=== PATIENT | female | born 1995 | race Caucasian/White ===

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

== ENCOUNTER 2018-01-28 13:32 | Emergency (ER) | END 2018-01-28 18:07 | disposition home or self-care (01) ==

== ENCOUNTER 2018-11-07 18:47 | Emergency (ER) | payer OTHER ==
[~2018-11-07] VITALS: Ht 162.6 cm; Wt 62.9 kg
[~2018-11-07 18:47] MED LIST changes: +FIORICET PO; +FLUC150T PO
[2018-11-07 18:51] VITALS: Ht 162.6 cm; Wt 62.9 kg
[2018-11-07] MEDS ORDERED: ACETAMINOPHEN 325 MG TAB PO STA (21:24)
[2018-11-07] MEDS ORDERED: SOD CHLORIDE 0.9% 1,000 ML IV STA (21:24)
[2018-11-07] MEDS ORDERED: DIPHENHYDRAMINE 50 MG INJ IV ONE (21:30)
[2018-11-07] MEDS ORDERED: METOCLOPRAMIDE 10 MG INJ IV ONE (21:30)
[2018-11-07] MEDS ORDERED: METO10TA92 PO (23:32)
[2018-11-07] MEDS ORDERED: CEPH-443 PO (23:35)
--- NOTE | 2018-11-07 23:44 | ERD ---
ER Documentation Chief Complaint Chief Complaint abd pain started today with nausea/vomiting; cant keep food down HPI 23-year-old female patient with no significant past medical history, is currently is a presents the ED complaining of abdominal pain, nausea, vomiting. Patient reports that she had some vaginal spotting, and has had about 10 episodes of nonbilious nonbloody vomiting. Denies any chest pain, shortness of breath, diarrhea, constipation. Reports her last menstruation is on October 02, 2018. ROS All systems reviewed and are negative except as per history of present illness. Medications Home Meds Active Scripts Cephalexin* (Keflex*) 500 Mg Capsule, 500 MG PO QID for 7 Days, CAP Prov:JOSEP THOMAS PA-C 11/07/18 Metoclopramide* (Reglan*) 10 Mg Tablet, 10 MG PO Q6 PRN for NAUSEA AND/OR VOMITING, #10 TAB Prov:JOSEP THOMAS PA-C 11/07/18 Fluconazole* (Diflucan*) 150 Mg Tablet, 150 MG PO ONCE, #1 TAB Prov:LAUREN ORNELAS PA-C 01/28/18 Cephalexin* (Keflex*) 500 Mg Capsule, 500 MG PO BID for 7 Days, #14 CAP Prov:LAUREN ORNELAS PA-C 01/28/18 Acetamin/Butalbital/Caffeine* (Fioricet*) [id number] Tab, 1 TAB PO Q6H PRN for PAIN, #30 TAB Prov:JOSEP THOMAS PA-C 12/07/16 Norgestimate-Ethinyl Estradiol (Ortho Tri-Cyclen 28 Tablet) 1 Each Tablet, 1 EACH PO DAILY for 30 Days, TAB Prov:PENELOPE SMART PA-C 07/03/16 Medroxyprogesterone Acetate* (Provera*) 5 Mg Tablet, 5 MG PO DAILY, #10 TAB Prov:STEVEN GALLAGHER DO 10/14/15 Sulfamethoxazole-Trimethoprim* (Bactrim* DS) 800-160 Mg Tab, 1 TAB PO BID for 7 Days, TAB Prov:SOHAM SUNSHINE 07/04/15 Acetaminophen* (Tylophen*) 500 Mg Capsule, 1 CAP PO Q6H PRN for PAIN AND OR ELEVATED TEMP, #20 CAP Prov:SOHAM SUNSHINE 07/04/15 Cephalexin* (Keflex*) 500 Mg Capsule, 500 MG PO QID for 7 Days, CAP Prov:SOHAM SUNSHINE 07/04/15 Allergies Allergies: Coded Allergies: No Known Allergy (Unverified , 01/28/18) PMhx/Soc Medical and Surgical Hx: pt denies Medical Hx, pt denies Surgical Hx History of Surgery: No Hx Neurological Disorder: No Hx Respiratory Disorders: No Hx Cardiac Disorders: No Hx Psychiatric Problems: No Hx Miscellaneous Medical Probl: No Hx Alcohol Use: No Hx Substance Use: No Hx Tobacco Use: Yes (quit yesterday) Smoking Status: Former smoker FmHx Family History: No diabetes, No coronary disease Physical Exam Vitals Vital Signs Date Temp Pulse Resp B/P (MAP) Pulse Ox O2 O2 Flow FiO2 Time Delivery Rate 11/07/18 97.1 82 20 122/56 100 18:51 (78) Physical Exam Const: Lsa-arc-nvykiihan, well-nourished. In no acute distress. Head: Atraumatic, normocephalic Eyes: Normal Conjunctiva without injection. No purulent discharge. ENT: Normal external ear, nose. Moist oropharynx without tonsillar exudates. Non-erythematous pharynx. Uvula midline. No drooling. No trismus. Neck: No cervical midline tenderness. Full range of motion. No meningismus. No cervical lymphadenopathy. No JVD. Resp: Clear to auscultation bilaterally. No wheezing, rhonchi, rales, or crackles. No accessory muscle use. No retractions. Cardio: Regular rate and rhythm. No murmurs, rubs or gallops. Abd: Soft, nontender, non distended. Normal bowel sounds. No palpable masses. No rebound tenderness. No guarding. Negative McBurney's point. Negative psoas sign. Negative obturator sign. Skin: No petechiae or rashes Back: No midline tenderness. No CVA tenderness. Ext: No cyanosis, or edema. Neur: Awake and alert. Normal gait. Normal coordination. Psych: Normal Mood and Affect Result Diagram: 11/07/18214411/07/182144 Results 24 hrs Laboratory Tests Test 11/07/18 21:45 White Blood Count 16.8 10^3/ul Red Blood Count 4.60 10^6/ul Hemoglobin 14.5 g/dl Hematocrit 42.2 % Mean Corpuscular Volume 91.7 fl Mean Corpuscular Hemoglobin 31.5 pg Mean Corpuscular Hemoglobin Concent 34.4 g/dl Red Cell Distribution Width 12.9 % Platelet Count 249 10^3/UL Mean Platelet Volume 12.3 fl Immature Granulocytes % 0.600 % Neutrophils % 83.0 % Lymphocytes % 11.4 % Monocytes % 4.7 % Eosinophils % 0.0 % Basophils % 0.3 % Nucleated Red Blood Cells % 0.0 /100WBC Immature Granulocytes # 0.100 10^3/ul Neutrophils # 14.0 10^3/ul Lymphocytes # 1.9 10^3/ul Monocytes # 0.8 10^3/ul Eosinophils # 0.0 10^3/ul Basophils # 0.1 10^3/ul Nucleated Red Blood Cells # 0.0 10^3/ul Urine Color DIRK Urine Clarity CLOUDY Urine pH 5.0 Urine Specific Keyser 1.028 Urine Ketones 2+ mg/dL Urine Nitrite NEGATIVE mg/dL Urine Bilirubin NEGATIVE mg/dL Urine Urobilinogen NEGATIVE mg/dL Urine Leukocyte Esterase NEGATIVE Sanaz/ul Urine Microscopic RBC 4 /HPF Urine Microscopic WBC 2 /HPF Urine Squamous Epithelial Cells MANY /HPF Urine Bacteria FEW /HPF Urine Mucus MANY /HPF Urine Hemoglobin 3+ mg/dL Urine Glucose NEGATIVE mg/dL Urine Total Protein 2+ mg/dl Sodium Level 141 mmol/L Potassium Level 3.1 mmol/L Chloride Level 105 mmol/L Carbon Dioxide Level 20 mmol/L Anion Gap 16 Blood Urea Nitrogen 6 mg/dl Creatinine 0.53 mg/dl Est Glomerular Filtrat Rate mL/min > 60 mL/min Glucose Level 106 mg/dl Calcium Level 9.7 mg/dl Total Bilirubin 1.9 mg/dl Direct Bilirubin 0.00 mg/dl Indirect Bilirubin 1.9 mg/dl Aspartate Amino Transf (AST/SGOT) 29 IU/L Alanine Aminotransferase (ALT/SGPT) < 6 IU/L Alkaline Phosphatase 71 IU/L Total Protein 9.5 g/dl Albumin 5.2 g/dl Globulin 4.30 g/dl Albumin/Globulin Ratio 1.20 Lipase 57 U/L Beta HCG, Quantitative 20569.0 mIU/ml Current Medications Medications Dose Sig/Christy Start Time Status Last (Trade) Ordered Route PRN Stop Time Admin Dose Reason Admin Sodium 1,000 ml @ Q1H STAT 11/07/18 DC 11/07/18 Chloride 1,000 mls/hr IV 21:24 21:57 11/07/18 22:23 650 mg ONCE STAT 11/07/18 DC 11/07/18 Acetaminophen PO 21:24 22:01 (Tylenol 11/07/18 Tab) 21:26 10 mg ONCE ONCE 11/07/18 DC 11/07/18 Metoclopramid IV 21:30 21:57 e HCl 11/07/18 (Reglan) 21:31 25 mg ONCE ONCE 11/07/18 DC 11/07/18 Diphenhydrami IV 21:30 22:00 ne HCl 11/07/18 (Benadryl) 21:31 Procedures/MDM 23-year-old female patient with no significant past medical history presents to the ED complaining of abdominal pain, vomiting. Patient is afebrile and nontoxic-appearing. An ultrasound, beta-hCG, CBC, type and RH, UA was ordered to evaluate patient. Patient was treated here in the ED with 1 L normal saline, Reglan, 25 mg IV Benadryl treatment of her symptoms. Patient did not vomit here in the ED. CBC: No evidence of severe infection or anemia Urine: No elevation in nitrites, leukocyte esterase, hematuria. No evidence of UTI Rh: O positive No indication for Rhogam at this time. beta Hc PROCEDURE: Abdominal ultrasound, limited. CLINICAL INDICATION: Abdominal pain. TECHNIQUE: Multiple real-time images were acquired of the patient's right upper abdomen utilizing a high resolution transducer. COMPARISON: None FINDINGS: The liver demonstrates normal echogenicity and size measuring 17.0 cm. There is no focal mass or intrahepatic biliary ductal dilatation. The portal vein is patent. The gallbladder is not distended. No gallstones are identified. There is no pericholecystic fluid or gallbladder wall thickening. The common bile duct measures 3.9 mm in maximal dimension. The visualized portions of the pancreas are unremarkable. No free fluid is identified. The right kidney is normal size and echogenicity measuring 10.5 x 4.0 x 4.8 cm. There is no focal renal mass or echogenic calculus identified. There is no obstructive uropathy. IMPRESSION: Unremarkable right upper abdominal ultrasound. PROCEDURE: US OB. CLINICAL INDICATION: Pelvic pain TECHNIQUE: Transabdominal and transvaginal sonographic evaluation of the uterus was performed. COMPARISON: Pelvic sonogram dated 03/22/2015. FINDINGS: Uterus is retroverted. There is a gestational sac in the fundus of uterus containing yolk sac. There is no visible pole. Mean sac diameter measures 19.5 mm. Estimated gestational age based on this examination is 6 weeks and 4 days +/- 4 days. Estimated date of confinement based on this examination is 06/29/2019. Small hypoechoic lesion measuring approximately 13 x 3 x 9 mm, may represent subchorionic hemorrhage. Right ovary measures 2.9 x 1.7 x 2.3 cm. Left ovary measures 2.3 x 1.8 x 2.4 cm. Small follicles are seen in both ovaries. Normal vascular waveforms were sampled from both ovaries. There is trace free pelvic fluid. IMPRESSION: 1. Small intrauterine gestational sac containing yolk sac. No visible pole. Recommend follow-up pelvic sonogram in 7 - 10 days for reevaluation. 2. Probable small subchorionic hemorrhage. 3. Unremarkable ovaries. 4. Trace free pelvic fluid. Patient has a single intrauterine gestational sac. No pole noted, therefore patient was strictly instructed to follow-up with her [employer] for repeat sonogram. Patient was noted to have 2 white blood cells in her urine, patient will be treated for a urinary tract infection to avoid any labor. Pelvic rest was recommended due to the probable small subchorionic hemorrhage noted. Patient's bleeding symptoms have stabilized while in the department. Low suspicion for symptomatic anemia, ectopic , sepsis, PID, appendicitis, ovarian torsion, tubo-ovarian abscess, surgical abdomen, or other emergent conditions. Patient was educated that there is a risk for threatened . Patient to follow up with [employer] in 2 days for further evaluation and treatment. Patient is to return sooner to the ED for any worsening symptoms. Patient's questions were answered. Patient understood and agreed with discharge plan. Departure Diagnosis: Primary Impression: Hyperemesis gravidarum Additional Impression: Vaginal spotting Condition: Stable Patient Instructions: Hyperemesis Gravidarum (Severe Morning Sickness), Urinary Tract Infections in Women, Possible Miscarriage (Threatened ) Referrals: COMMUNITY CLINICS YOU HAVE RECEIVED A MEDICAL SCREENING EXAM AND THE RESULTS INDICATE THAT YOU DO NOT HAVE A CONDITION THAT REQUIRES URGENT TREATMENT IN THE EMERGENCY DEPARTMENT. FURTHER EVALUATION AND TREATMENT OF YOUR CONDITION CAN WAIT UNTIL YOU ARE SEEN IN YOUR DOCTORS OFFICE WITHIN THE NEXT 1-2 DAYS. IT IS YOUR RESPONSIBILITY TO MAKE AN APPOINTMENT FOR FOLOW-UP CARE. IF YOU HAVE A PRIMARY DOCTOR --you should call your primary doctor and schedule an appointment IF YOU DO NOT HAVE A PRIMARY DOCTOR YOU CAN CALL OUR PHYSICIAN REFERRAL HOTLINE AT IF YOU CAN NOT AFFORD TO SEE A PHYSICIAN YOU CAN CHOSE FROM THE FOLLOWING [facility] [address] [facility] [address] [facility] [address] [facility] [address] [facility] [address] [facility] [address] [facility]. [facility] YOU HAVE RECEIVED A MEDICAL SCREENING EXAM AND THE RESULTS INDICATE THAT YOU DO NOT HAVE A CONDITION THAT REQUIRES URGENT TREATMENT IN THE EMERGENCY DEPARTMENT. FURTHER EVALUATION AND TREATMENT OF YOUR CONDITION CAN WAIT UNTIL YOU ARE SEEN IN YOUR DOCTORS OFFICE WITHIN THE NEXT 1-2 DAYS. IT IS YOUR RESPONSIBILITY TO MAKE AN APPOINTMENT FOR FOLOW-UP CARE. IF YOU HAVE A PRIMARY DOCTOR --you should call your primary doctor and schedule and appointment IF YOU DO NOT HAVE A PRIMARY DOCTOR YOU CAN CALL OUR PHYSICIAN REFERRAL HOTLINE AT . IF YOU CAN NOT AFFORD TO SEE A PHYSICIAN YOU CAN CHOSE FROM THE FOLLOWING [facility] INSTITUTIONS: [facility] [address] [place] [address] [facility] [address] [place] [address] [facility] [address] [place] [address] [facility] URGENT CARE/SPECIALTIES Additional Instructions: Call your primary care doctor TOMORROW for an appointment during the next 2-3 days.See the doctor sooner or return here if your condition worsens before your appointment time. JOSEP THOMAS PA-C Nov 07, 2018 23:44
[2018-11-07 23:53] VITALS: BP 117/64; PULSE 68; RESP 16
== END 2018-11-07 23:54 | disposition home or self-care (01) ==
LOC: FTE 18:47
DX: O21.0 Mild hyperemesis gravidarum (principal); O26.851 Spotting complicating pregnancy, first trimester; R10.2 Pelvic and perineal pain; Z3A.01 Less than 8 weeks gestation of pregnancy
CPT/HCPCS: 36415; 76705; 76801; 76817; 80053; 81001; 83690; 84702; 85025; 86900; 86901; 96374; 96375; J1200; J2765; J7030; Z7502; Z7610

== ENCOUNTER 2019-06-20 05:50 | Inpatient (IN) | payer OTHER ==
[~2019-06-20] VITALS: Ht 165.1 cm; Wt 93.6 kg
[~2019-06-20 05:50] MED LIST changes: +METO10TA92 PO
[2019-06-20 06:04] VITALS: BP 130/59; PULSE 75; RESP 18; Ht 165.1 cm; Wt 93.6 kg
[2019-06-20] MEDS ORDERED: LACTATED RINGER'S 1,000 ML IV PRN (06:23)
[2019-06-20] MEDS ORDERED: OXYTOCIN 30 UNITS/LR 500 ML IV SCH ×3 (06:30)
[2019-06-20] MEDS ORDERED: OXYTOCIN 30 UNITS/LR 500 ML IV PRN ×2 (06:30→14:00)
[2019-06-20] MEDS ORDERED: MINERAL OIL LIGHT 10 ML VIAL TOP ONE (06:30)
[2019-06-20] MEDS ORDERED: IBUPROFEN 600 MG TAB PO PRN (06:30)
[2019-06-20] MEDS ORDERED: METHYLERGONOVINE 0.2 MG INJ IM PRN ×2 (06:30→14:00)
[2019-06-20] MEDS ORDERED: CARBOPROST 250 MCG INJ IM PRN ×2 (06:30→14:00)
[2019-06-20] MEDS ORDERED: BUTORPHANOL 2 MG INJ IV PRN (06:30)
[2019-06-20] MEDS ORDERED: MISOPROSTOL 200 MCG TAB PR PRN ×2 (06:30→14:00)
[2019-06-20] MEDS ORDERED: LIDOCAINE 1% (MPF) 30 ML INJ INJ PRN (06:30)
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
[2019-06-20] MEDS: LACTATED RINGER'S 1,000 ML IV SCH ×2 (07:03→09:31)
--- NOTE | 2019-06-20 09:23 | PREAC ---
Date/Time of Note Date/Time of Note DATE: 06/20/19 TIME: 09: Anesthesia Eval and Record Evaluation Time Pre-Procedure Interview DATE: 06/20/19 TIME: 09:22 Age 23 Sex female NPO: 8 hrs Preoperative diagnosis iup at term Planned procedure labor epidural Past Medical History Past Medical History: Includes GI: Obesity Surgery & Anesthesia Issues No known issue Meds Anticoagulation: No Beta Sina within 24 hr: No Reason Beta Sina not given: Pt. not on B-Sina Active Scripts Cephalexin* (Keflex*) 500 Mg Capsule, 500 MG PO QID for 7 Days, CAP Prov:JOSEP THOMAS PA-C 11/07/18 Metoclopramide* (Reglan*) 10 Mg Tablet, 10 MG PO Q6 PRN for NAUSEA AND/OR VOMITING, #10 TAB Prov:JOSEP THOMAS PA-C 11/07/18 Fluconazole* (Diflucan*) 150 Mg Tablet, 150 MG PO ONCE, #1 TAB Prov:LAUREN ORNELAS PA-C 01/28/18 Cephalexin* (Keflex*) 500 Mg Capsule, 500 MG PO BID for 7 Days, #14 CAP Prov:LAUREN ORNELAS PA-C 01/28/18 Acetamin/Butalbital/Caffeine* (Fioricet*) [id number] Tab, 1 TAB PO Q6H PRN for PAIN, #30 TAB Prov:JOSEP THOMAS PA-C 12/07/16 Norgestimate-Ethinyl Estradiol (Ortho Tri-Cyclen 28 Tablet) 1 Each Tablet, 1 EACH PO DAILY for 30 Days, TAB Prov:PENELOPE SMART PA-C 07/03/16 Medroxyprogesterone Acetate* (Provera*) 5 Mg Tablet, 5 MG PO DAILY, #10 TAB Prov:STEVEN GALLAGHER DO 10/14/15 Sulfamethoxazole-Trimethoprim* (Bactrim* DS) 800-160 Mg Tab, 1 TAB PO BID for 7 Days, TAB Prov:SOHAM SUNSHINE 07/04/15 Acetaminophen* (Tylophen*) 500 Mg Capsule, 1 CAP PO Q6H PRN for PAIN AND OR ELEVATED TEMP, #20 CAP Prov:SOHAM SUNSHINE 07/04/15 Cephalexin* (Keflex*) 500 Mg Capsule, 500 MG PO QID for 7 Days, CAP Prov:SOHAM SUNSHINE 07/04/15 Current Medications Lactated Ringer's 1,000 ml @ 125 mls/hr Q8H IV Last administered on 06/20/19at 07:03; Admin Dose 125 MLS/HR; Start 06/20/19 at 06:23 Butorphanol Tartrate (Stadol) 2 mg Q2H PRN IV .PAIN SCALE 6-10 Last administered on 06/20/19at 08:10; Admin Dose 2 MG; Start 06/20/19 at 06:30 Lidocaine (Xylocaine 1% (Mpf)) 30 ml ONCE PRN INJ .EPISIOTOMY; Start 06/20/19 at 06:30 Oxytocin/Lactated Ringer's 500 ml @ 500 mls/hr ONCE POST IV ; Start at 06:30 Oxytocin/Lactated Ringer's 500 ml @ 125 mls/hr POST IV ; Start 06/20/19 at 06:30 Ibuprofen (Motrin) 600 mg ONCE PRN PO .PAIN 1-5; Start 06/20/19 at 06:30 Lactated Ringer's 1,000 ml @ 2,000 mls/hr Q30M PRN IV .ANESTHESIA Last administered on 06/20/19at 08:30; Admin Dose 2,000 MLS/HR; Start 06/20/19 at 06:23 Oxytocin/Lactated Ringer's 500 ml @ 0 mls/hr ONCE PRN IV .VAGINAL BLEEDING; Start 06/20/19 at 06:30 Methylergonovine Maleate (Methergine) 0.2 mg ONCE PRN IM .VAGINAL BLEEDING; Start 06/20/19 at 06:30 Carboprost Tromethamine (Hemabate) 250 mcg ONCE PRN IM .VAGINAL BLEEDING; Start 06/20/19 at 06:30 Misoprostol (Cytotec) 1,000 mcg ONCE PRN PA .VAGINAL BLEEDING; Start 06/20/19 at 06:30 Oxytocin/Lactated Ringer's 500 ml @ 0 mls/hr FOR AUGMENTATION IV ; Start 06/20/19 at 06:30 Meds reviewed: Yes Allergies Coded Allergies: No Known Allergy (Unverified , 01/28/18) Allergies Reviewed: Yes Labs/Studies Labs Reviewed: Reviewed by anesthesiologist Result Diagram: 06/20/19 0635 Laboratory Tests 06/20/19 06:35 Blood Bank Test 06/20/19 06:35 Antibody Screen NEGATIVE Blood Type O POSITIVE Rh Immune Globulin Candidate NO test: Positive Pre-procedure Exam Last vitals Vital Signs Date Temp Pulse Resp B/P (MAP) Pulse Ox O2 O2 Flow FiO2 Time Delivery Rate 06/20/19 98.3 75 18 130/59 Room Air 06:04 (82) Airway: Adequate mouth opening, Adequate thyromental dist Mallampati: Mallampati II Teeth: Normal Lung: Normal Heart: Normal ASA Physical Status ASA physical status: 2 Emergency: None Planned Anesthetic Neuraxial: Epidural Planned Pain Management Parenteral pain med Pre-operative Attestations Prior to commencing anesthesia and surgery, the patient was re-evaluated, there was verification of: *The patient's identity *The results of appropriate recent lab work and preoperative vital signs *The above evaluation not changing prior to induction *Anesthetic plan, risk benefits, alternative and complications discussed with patient/family; questions answered; patient/family understands, accepts and wishes to proceed. PENELOPE GARZA Jun 20, 2019 09:23
[2019-06-20] MEDS ORDERED: FENTAnyl 2MCG/ML-ROPIV 0.2% 100 ML ONE (09:29)
[2019-06-20] MEDS ORDERED: DIPHENHYDRAMINE 50 MG INJ IV PRN (09:30)
[2019-06-20] MEDS ORDERED: FENTAnyl 2MCG/ML-ROPIV 0.2% 100 ML BAG EPI SCH (09:30)
[2019-06-20] MEDS ORDERED: ONDANSETRON 4 MG INJ IV PRN (09:30)
[2019-06-20] MEDS ORDERED: NALOXONE (0.4 MG/ML) INJ IV PRN (09:30)
--- NOTE | 2019-06-20 12:05 | PAC ---
Date/Time of Note Date/Time of Note DATE: 06/20/19 TIME: 12:05 Post-Anesthesia Notes Post-Anesthesia Note Last documented vital signs Vital Signs Date Temp Pulse Resp B/P (MAP) Pulse Ox O2 O2 Flow FiO2 Time Delivery Rate 06/20/19 98.3 75 18 130/59 Room Air 1200 (82) Activity: WNL Respiratory function: WNL Cardiovascular function: WNL Mental status: Baseline Pain reasonably controlled: Yes Hydration appropriate: Yes Nausea/Vomiting absent: Yes PENELOPE GARZA Jun 20, 2019 12:05
--- NOTE | 2019-06-20 12:36 | HP ---
Date/Time of Note Date/Time of Note DATE: 06/20/19 TIME: 12:30 OB - History Hx of Present Free Text/Dictation 23 y.o presented triage after srom at 0500 in labor Initial VE 4-5/80/-2 EFM CAT I marijuana daily user PNR not available at present admitted for expectant management ADD gbs NEG Chief Complaint: IN LABOR WITH srom Estimated Due Date: Jul 02, 2019 : 1 Para: 0 Spontaneous : 0 Therapeutic : 0 Care: Other Ultrasounds: Other Obstetrical Complications: None Medical Complications: None Past Family/Social History * Past Medical, Surgical, Family and Obstetric Histories reviewed from chart. Blood Type: O+ Rubella: immune RPR/VDRL: Negative GBS Status: Negative HBsAG: Negative OB Admission Exam Vital Signs Vital Signs Vital Signs Date Temp Pulse Resp B/P (MAP) Pulse Ox O2 O2 Flow FiO2 Time Delivery Rate 06/20/19 98.3 75 18 130/59 Room Air 06:04 (82) Physical Exam HEENT: WNL Heart: Rhythm Normal Lungs: Clear, Equal Abdomen: WNL Extremities: Normal Reflexes: Normal Cervical Dilatation: 5cm Effacement: 75% Station: -2 Membranes: Ruptured Amniotic Fluid: Clear Heart Rate: 140's Accelerations: Accelerations Present Varibility: Moderate Contractions on Admission: < 5 Minutes Apart Intensity: Firm Last 72 hours Lab Results CBC & BMP 06/20/19 06:35 OB Assessment/Plan Reason for admission: active labor Other Assessment: A IUP 38w2d in active labor with SROM Plan: Expectant Management JYOTI CALLAHAN MD Jun 20, 2019 12:36
--- NOTE | 2019-06-20 12:42 | LDN ---
Date/Time of Note Date/Time of Note DATE: 06/20/19 TIME: 12:40 Delivery Summary of normal female Weeks of Gestation 38w2d Placenta Delivered: Spontaneously, Intact & Complete Meconium: none Episiotomy: No Perineal laceration: 0 Anesthesia type: Epidural Estimated blood loss: 50 Sponge & Needle done & correct: Yes All needle counts correct: Yes Any foreign bodies felt in the: No Infant Delivery Information Sex Infant Sex: female Apgars 1 Minute: 8 5 Minute: 9 Suctioning Nose & mouth suctioned at flora: Yes Delee suction performed: Yes Umbilical Cord Umbilical cord with: 3 Vessels Cord presentations: no nuchal cord Cord Blood was obtained: Yes Mother & Baby Disposition Disposition Mom & Baby to Maternity; Good: Yes Mom transferred to: Other Baby to NICU: No () JYOTI CALLAHAN MD Jun 20, 2019 12:42
[2019-06-20 13:25] VITALS: BP 111/58; PULSE 88; RESP 17
[2019-06-20] MEDS ORDERED: ZOLPIDEM 5 MG TAB PO PRN (14:00)
[2019-06-20] MEDS ORDERED: WITCH HAZEL/GLYCERIN PAD PR PRN (14:00)
[2019-06-20] MEDS ORDERED: OXYCODONE/ASPIRIN (4.88/325) TAB PO PRN ×2 (14:00)
[2019-06-20] MEDS ORDERED: LANOLIN HPA 1 PKT TOP PRN (14:00)
[2019-06-20 15:55] VITALS: BP 115/59; PULSE 86; RESP 16
[2019-06-20] MEDS: BENZOCAINE 20% 56 ML SPRAY TOP PRN (16:52)
[2019-06-20] MEDS: IBUPROFEN 600 MG TAB PO SCH ×2 (18:57→23:56)
[2019-06-20 20:00] VITALS: BP 127/97; PULSE 82; RESP 19
[2019-06-20] MEDS: SENNA/DOCUSATE NA (8.6MG/50MG) TAB PO SCH (23:56)
[2019-06-21 04:00] VITALS: BP 116/55; PULSE 82; RESP 19
[2019-06-21] MEDS: IBUPROFEN 600 MG TAB PO SCH ×3 (05:36→17:08)
[2019-06-21 08:15] VITALS: BP 104/57; PULSE 80; RESP 14
[2019-06-21] MEDS: SENNA/DOCUSATE NA (8.6MG/50MG) TAB PO SCH (09:54)
[2019-06-21 16:35] VITALS: BP 120/67; PULSE 81; RESP 16
--- NOTE | 2019-06-21 19:56 | QN ---
Documentation Comment day #1 Status post Patient stable and afebrile Vital signs stable VS - Last 72 Hours, by Label Date Temp Pulse Resp B/P (MAP) Pulse Ox O2 O2 Flow FiO2 Time Delivery Rate 06/21/19 98.3 81 16 120/67 Room Air 16:35 (84) 06/21/19 98.1 80 14 104/57 Room Air 08:15 (73) 06/21/19 98.6 82 19 116/55 Room Air 04:00 (75) 06/20/19 98.0 82 19 127/97 Room Air 20:00 (107) 06/20/19 98.9 86 16 115/59 Room Air 15:55 (77) 06/20/19 98.7 88 17 111/58 Room Air 13:25 (75) 06/20/19 98.3 75 18 130/59 Room Air 06:04 (82) Hematology - 72 Hrs Test 06/20/19 06:35 06/21/19 04:44 Hematocrit 37.6 % (37.0-47.0) 36.8 % (37.0-47.0) L Hemoglobin 12.7 g/dl (12.0-16.0) 12.3 g/dl (12.0-16.0) Mean Corpuscular 32.2 pg (29.0-33.0) 31.9 pg (29.0-33.0) Hemoglobin Mean Corpuscular 33.8 g/dl (32.0-37.0) 33.4 g/dl (32.0-37.0) Hemoglobin Concent Mean Corpuscular Volume 95.2 fl (82.0-101.0) 95.3 fl (82.0-101.0) Mean Platelet Volume 12.5 fl (7.4-10.4) H 12.9 fl (7.4-10.4) H Platelet Count 190 10^3/UL (140-415) # 176 10^3/UL (140-415) Red Blood Count 3.95 10^6/ul (4.20-5.40) 3.86 10^6/ul (4.20-5.40) L L Red Cell Distribution 12.7 % (11.5-14.5) 12.6 % (11.5-14.5) Width White Blood Count 10.2 10^3/ul (4.8-10.8) 15.8 10^3/ul (4.8-10.8) # #H Abdomen soft, fundus firm Perineum intact Extremities nontender Assessment and plan Patient stable and doing well Continue with routine care PRIYANKA ANDERSEN MD Jun 21, 2019 19:56
[2019-06-21 20:30] VITALS: BP 121/60; PULSE 77; RESP 19
[2019-06-22] MEDS: IBUPROFEN 600 MG TAB PO SCH ×3 (00:09→11:58)
[2019-06-22] MEDS: SENNA/DOCUSATE NA (8.6MG/50MG) TAB PO SCH ×2 (00:09→09:57)
[2019-06-22 04:15] VITALS: BP 104/54; PULSE 75; RESP 18
[2019-06-22 08:00] VITALS: BP 116/64; PULSE 78; RESP 18
[2019-06-22] MEDS ORDERED: DIPHTH/TET/ACEL PERTUSS (ADULT) 0.5 ML VIAL IM* ONE (09:00)
--- NOTE | 2019-06-22 10:35 | PD.PPDC ---
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
--- NOTE | 2019-06-22 10:37 | DS ---
Date/Time of Note Date/Time of Note DATE: 06/22/19 TIME: 10:36 Obstetrical Discharge Record Final Diagnosis Final Diagnosis: Term delivered Vaginal Delivery Obstetrical Delivery: Spontaneous Condition on Discharge Physical Assessment Last Vitals: stable afebrile Voiding: Yes Bowel Movement: Yes Breast: Soft, non-tender, Filling Fundus: Firm Abdomen and Incision: soft nt Calf Tenderness: No Patient Condition: Fair EBONY PETTY MD Jun 22, 2019 10:37
[2019-06-22] MEDS: BENZOCAINE 20% 56 ML SPRAY TOP PRN (13:33)
--- NOTE | 2019-06-23 14:41 | DELSUM ---
Delivery Summary A-C Datetime Report Generated by CPN: 06/23/2019 14:41 DELIVERY PERSONNEL Carpenter Inspector: Duvo, Regina MATERNAL INFORMATION Delivery Anesthesia: Epidural Medications in Delivery: pitocin 30 units, mineral oil Delivery QBL (ml): 55 Placenta Cultured: No Maternal Complications: Other RN Comments: use of marijuana during for nausea and vomiting. LABOR SUMMARY EDC: 07/02/2019 00:00 No. Babies in Womb: 1 Attempted: No Labor Anesthesia: Epidural LABOR INFORMATION Reason for Induction: Not Applicable Onset of Labor: 06/20/2019 05:00 Complete Dilatation: 06/20/2019 11:03 Oxytocin: N/A Group B Beta Strep: Negative Antibiotics # of Doses: 0 Steroids Given: None Reason Steroids Not Administered: Not Applicable MEMBRANES Membranes Rupture Method: Spontaneous Rupture of Membranes: 06/20/2019 05:00 Length of Rupture (hr): 6.78 Amniotic Fluid Color: Clear Amniotic Fluid Amount: Moderate Amniotic Fluid Odor: None STAGES OF LABOR Stage 1 hr: 6 Stage 1 min: 3 Stage 2 hr: 0 Stage 2 min: 44 Stage 3 hr: 0 Stage 3 min: 3 Total Time in Labor hr: 6 Total Time in Labor min: 50 VAGINAL DELIVERY Episiotomy: None Laceration Extension: N/A Laceration Type: None Laceration Repair: Not Applicable Initial Vag Sponge Count: 10 Final Vag Sponge Count: 10 Initial Vag Sharps Count: 1 Final Vag Sharps Count: 1 Sponge Count Correct: Yes; Vaginal Sweep Performed Sharps Count Correct: Yes BABY A INFORMATION Infant Delivery Date/Time: 06/20/2019 11:47 Method of Delivery: Vaginal Born in Route : No : N/A Forceps: N/A Vacuum Extraction: N/A Shoulder Dystocia : N/A SHOULDER DYSTOCIA BABY A Delivery Date/Time: 06/20/2019 11:47 PRESENTATION/POSITION BABY A Presentation: Cephalic Cephalic Presentation: Vertex Vertex Position: Left Occipital Anterior Breech Presentation: N/A PLACENTA INFORMATION BABY A Placenta Delivery Time : 06/20/2019 11:50 Placenta Method of Delivery: Spontaneous Placenta Status: Delivered SCORES BABY A Heart Rate 1 min: >100 bpm Resp Effort 1 min: Good Cry Reflex Irritability 1 min: Cough/Sneeze/Pulls Away Muscle Tone 1 min: Active Motion Color 1 min: Blue/Pale Resuscitation Effort 1 min: Tactile Stimulation SCORE 1 MIN: 8 Heart Rate 5 min: >100 bpm Resp Effort 5 min: Good Cry Reflex Irritability 5 min: Cough/Sneeze/Pulls Away Muscle Tone 5 min: Active Motion Color 5 min: Body [place], Extremit Blue Resuscitation Effort 5 min: Tactile Stimulation SCORE 5 MIN: 9 INFANT INFORMATION BABY A Gestational Age at Delivery: 38.2 Gestational Status: Early Term- 37- 38.6 Weeks Outcome : Liveborn, with signs of life Infant Condition : Stable Infant Sex: Female IDENTIFICATION/MEDS BABY A ID Band Number: [id number] ID Band Location: Right Leg; Left Arm Sensor Applied: Yes Sensor Number: [id number] Sensor Location : Cord Clamp Vitamin K Given : Not Given Erythromycin Given: Not Given WEIGHT/LENGTH BABY A Infant Birthweight (gm): 2855 Weight (lb): 6 Weight (oz): 5 Length (in): 19.50 Length (cm): 49.53 CORD INFORMATION BABY A No. Cord Vessels: 3 Nuchal Cord : N/A Cord Blood Taken: Yes Infant Suction: Mouth ASSESSMENT BABY A Complications: Multiple Variable Decels Physical Findings at Delivery: Molding of the Head; Within Normal Limits Infant Respirations: Appears Normal Enterprise Architect/ALS Called : No Infant Care By: [place] ALVARADO RN Transferred To: Remains with Mother
== END 2019-06-22 14:00 | disposition home or self-care (01) | DRG 807 ==
LOC: OBT 05:50 → L-D 05:50 → OBT 06:20 → L-D 07:25 → MS1 13:24 → PP1 06-21 18:08
PROVIDERS: ADMIT Obstetrics & Gynecology; ATTEND Obstetrics & Gynecology
PROC: 10E0XZZ Delivery of Products of Conception, External Approach (ICD-10-PCS; principal; 2019-06-20)
DX: O99.214 Obesity complicating childbirth (principal); Z37.0 Single live birth; E66.9 Obesity, unspecified; O99.324 Drug use complicating childbirth; F12.90 Cannabis use, unspecified, uncomplicated; Z3A.38 38 weeks gestation of pregnancy; Z23 Encounter for immunization
CPT/HCPCS: 62322; 76815; 80307; 85025; 85610; 85730; 86592; 86850; 86900; 86901; 87340; 90715; G0463; J0595; J2590; J3010; J7120